=== PATIENT | female | born 1985 | race Caucasian/White ===

== ENCOUNTER 2020-08-07 09:44 | Outpatient (REF) | payer OTHER, SELFPAY | END 2020-08-07 09:45 | disposition home or self-care (01) | LOC: HO.LAB 09:44 | PROVIDERS: Visit Provider Nurse Practitioner Family | DX: L02.91 Cutaneous abscess, unspecified (principal) | CPT/HCPCS: 87071; 87077; 87186; 87205 ==

== ENCOUNTER 2021-02-22 15:57 | Outpatient (REF) | payer OTHER, SELFPAY ==
--- NOTE | ~2021-02-22 | US_ITS ---
EXAMINATION: US THYROID CLINICAL INFORMATION: Nontoxic multinodular goiter. COMPARISON: None. TECHNIQUE: Linear transducer grayscale and color Doppler examination with attention to the region of the thyroid. FINDINGS: SIZE: Measurements of the thyroid lobes and nodules are given in sagittal, anteroposterior and transverse dimensions respectively. Right Thyroid Lobe: 5.6 x 1.9 x 1.85 cm, volume 10.3 mL. Parenchyma: The gland echotexture is heterogeneous. Thyroid vascularity is normal. Left Thyroid Lobe: 8.2 x 3.9 x 3.7 cm, volume 62.9 mL. Parenchyma: The gland echotexture is heterogenous. Thyroid vascularity is normal. Isthmus: 0.7 cm in maximum AP dimension. Estimated total number of nodules greater than or equal to 1 cm: one. Tobacco Weigher nodules are described as follows: 1. Location: Left upper and mid. Size: 6.2 x 3.8 x 2.8 cm, volume 34.5 mL. Nodule characteristics: Composition: Solid (2). Echogenicity: Isoechoic (1). Shape: Taller than wide Margins: Ill-defined (0). Echogenic Foci: None (0). ACR TI-RADS total points: 6 ACR TI-RADS category: 4 NODES: No lymphadenopathy is seen in the tissue surrounding the thyroid gland. US/US thyroid IMPRESSION: Large suspicious nodule upper midpole, almost occupying the entire left lobe. Recommend fine-needle biopsy as per ACR TI-RADS recommendations. ACR TI-RADS RECOMMENDATION REFERENCE: Ultrasound-guided fine-needle aspiration, followup ultrasound, no further follow up. * TR1 (0 point) and TR 2 (2 points): No FNA or follow up * TR3 (3 points): FNA if more than or equal to 2.5 cm in maximum dimension, followup ultrasound in 1, 3 and 5 years if 1.5 to 2.4 cm in maximum dimension. * TR4 (4-6 points): FNA if more than or equal to 1.5 cm in maximum dimension, followup ultrasound in 1, 2, 3 and 5 years if 1 to 1.4 cm in maximum dimension. * TR5 (more than or equal to 7 points): FNA if more than or equal to 1 cm in maximum dimension, followup ultrasound every year for 5 years if 0.5 to 0.9 cm in maximum dimension. * TR3, TR4 or TR5 nodules that are below the size threshold for follow up receive no follow up.
== END 2021-02-22 15:58 | disposition home or self-care (01) ==
LOC: HO.US 15:57
PROVIDERS: PCP Internal Medicine; Visit Provider Internal Medicine
DX: E04.2 Nontoxic multinodular goiter (principal); L68.0 Hirsutism; E55.9 Vitamin D deficiency, unspecified
CPT/HCPCS: 76536; 99202

== ENCOUNTER 2021-02-23 14:38 | Outpatient (REF) | payer OTHER, SELFPAY ==
[2021-02-24 07:56] LABS: HBsAGNum1 0.18 S/CO (0.00-0.99); HIV AB/AG Nonreactive (Nonreactive); HIV Num 1 0.04 S/CO (0.00-0.99); Hepatitis B Surface Antigen Negative (Negative)
[2021-02-24 08:04] LABS: Syphilis Screen Nonreactive (Nonreactive)
[2021-02-24 09:48] LABS: CT PCR NOT DETECTED (Not Detect.); NG PCR NOT DETECTED (Not Detect.)
[2021-02-24 13:46] LABS: BV Int Neg Control Negative (Negative); BV Int Pos Control Positive (Positive)
== END 2021-02-23 14:39 | disposition home or self-care (01) ==
LOC: HO.LAB 14:38
PROVIDERS: Absent Provider Internal Medicine; PCP Internal Medicine; Visit Provider Obstetrics & Gynecology
DX: Z01.419 Encounter for gynecological examination (general) (routine) without abnormal findings (principal); Z11.3 Encounter for screening for infections with a predominantly sexual mode of transmission; Z11.4 Encounter for screening for human immunodeficiency virus [HIV]; Z01.84 Encounter for antibody response examination; Z20.2 Contact with and (suspected) exposure to infections with a predominantly sexual mode of transmission
CPT/HCPCS: 36415; 86780; 87340; 87389; 87480; 87491; 87510; 87591; 87660

== ENCOUNTER → 2021-05-12 13:55 | Outpatient (BNVA) | payer OTHER, SELFPAY | PROVIDERS: PCP Internal Medicine; Visit Provider Internal Medicine ==

== ENCOUNTER 2022-03-21 15:19 | Outpatient (REF) | payer OTHER, SELFPAY ==
[2022-03-22 06:05] LABS: CT PCR NOT DETECTED (Not Detect.); NG PCR NOT DETECTED (Not Detect.)
[2022-03-22 08:30] LABS: BV Int Neg Control Negative (Negative); BV Int Pos Control Positive (Positive)
== END 2022-03-21 15:20 | disposition home or self-care (01) ==
LOC: HO.LAB 15:19
PROVIDERS: Visit Provider Advanced Practice Midwife
DX: Z11.3 Encounter for screening for infections with a predominantly sexual mode of transmission (principal); Z20.2 Contact with and (suspected) exposure to infections with a predominantly sexual mode of transmission
CPT/HCPCS: 87480; 87491; 87510; 87591; 87660

== ENCOUNTER → 2022-04-01 14:12 | Outpatient (BNVA) | payer OTHER, SELFPAY | PROVIDERS: PCP Internal Medicine; Visit Provider Advanced Practice Midwife | DX: Z30.41 Encounter for surveillance of contraceptive pills (principal) | CPT/HCPCS: 99212 ==

== ENCOUNTER 2023-01-27 07:41 | Outpatient (REF) | payer OTHER, SELFPAY | END 2023-01-27 07:42 | disposition home or self-care (01) | LOC: HO.HMGCLDS 07:41 | PROVIDERS: PCP Internal Medicine; Visit Provider Internal Medicine | DX: E04.2 Nontoxic multinodular goiter (principal) | CPT/HCPCS: 36415; 84439; 84443 ==

== ENCOUNTER 2023-03-23 15:12 | Outpatient (REF) | payer OTHER, SELFPAY | END 2023-03-23 15:13 | disposition home or self-care (01) | LOC: HO.LNP 15:12 | PROVIDERS: PCP Internal Medicine; Visit Provider Advanced Practice Midwife | DX: Z13.89 Encounter for screening for other disorder (principal) ==

== ENCOUNTER 2023-03-23 16:06 | Outpatient (REF) | payer OTHER, SELFPAY ==
[2023-03-24 05:04] LABS: Syphilis Screen Nonreactive (Nonreactive)
[2023-03-24 05:16] LABS: HBc Num1 0.07 S/CO (0.00-0.79); HIV AB/AG Nonreactive (Nonreactive); HIV Num 1 0.08 S/CO (0.00-0.99); Hepatitis B Core Antibody Nonreactive (Nonreactive); ~HepC Num1 0.07 S/CO (0.00-0.79); ~Hepatitis C Antibody Nonreactive (Nonreactive)
[2023-03-24 12:05] LABS: CT PCR NOT DETECTED (Not Detect.); NG PCR NOT DETECTED (Not Detect.)
== END 2023-03-23 16:07 | disposition home or self-care (01) ==
LOC: HO.LAB 16:06
PROVIDERS: PCP Internal Medicine; Visit Provider Advanced Practice Midwife
DX: Z11.4 Encounter for screening for human immunodeficiency virus [HIV] (principal); Z20.2 Contact with and (suspected) exposure to infections with a predominantly sexual mode of transmission
CPT/HCPCS: 0353U; 86704; 86780; 86803; 87389

== ENCOUNTER 2023-05-01 13:37 | Outpatient (AMB) | payer OTHER, SELFPAY ==
--- NOTE | 2023-05-01 14:08 | A.OFFPC_ITS ---
Vital Signs 05/01/23 14:11 Height 5 ft 3 in Weight 291 lb BMI 51.5 BP 118/90 H Blood Pressure Location Lt brachial Position Sitting Pulse 87 Pulse Source Pulse Oximeter Pulse Oximetry (%) 100 Oxygen Delivery Method Room Air Intake Visit Reasons: Sinus Infection Intake Note: Pt is here today for a ? sinus infection: sinus pressure, nasal congestion x1.5 days Allergies seasonal allergies Allergy (Unknown, Uncoded 05/01/23 14:25) Unknown Medication List - Last Reconciled 05/01/23 by Beatriz Guzman MD desog-e.estradiol/e.estradiol 0.15-0.02 mgx21 /0.01 mg x 5 1 tab PO DAILY 84 days Tobacco use date assessed: 05/01/23 Dental Screening Dental Screen Date: 05/01/23 Did you have a dental visit in the last 12 months?: No Was dental information given to patient?: No HPI Sinus Infection HPI Details 37-year-old lady here today complaining nasal congestion, frontal headaches, and pain over both cheeks, which has been present for at least 2 days. He has been taking icol-emw-bbwppby cold medication which has not been helping. She has also been complaining of pain and itchiness in left ear canal, no decreased hearing . [facility] Medical History Hirsutism Morbid obesity Multinodular goiter Vitamin D deficiency Surgical History No pertinent past surgical history Family History Father History of hypertension Hx of hyperlipidemia Mother Hypothyroidism Social History Housing: Apartment Alcohol intake: current Patient Tobacco Use Status: Never used Tobacco e-Cigarette/Vaping Use: Never Used service: No Current occupational status: employed Sexual orientation: Straight/Heterosexual Gender identity: Female Cognitive needs: No Hearing needs: No Vision needs: No Female Reproductive History Menstrual Age of Menarche: 12 Questionnaire PHQ-9 Over the last 2 weeks, how often have you been bothered by any of the following problems? 1. Little interest or pleasure in doing things: not at all 2. Feeling down, depressed, or hopeless: not at all 3. Trouble falling or staying asleep, or sleeping too much: several days 4. Feeling tired or having little energy: more than half the days 5. Poor appetite or overeating: not at all 6. Feeling bad about yourself - or that you are a failure or have let yourself or your family down: not at all 7. Trouble concentrating on things, such as reading the newspaper or watching television: not at all 9. Thoughts that you would be better off or of hurting yourself in some way: not at all Depression Screening Interpretation: Negative 88709 - PHQ-9 Billing: Yes Source: Developed by Drs. Jhony Whelan, Marysol Webb, Anthony Gentile and colleagues, with an educational ute from [employer]. Thrive Questionnaire Date Thrive assessed: 05/01/23 What is your living situation today?: I have a steady place to live Within the past 12 months, did the food you bought not last and you didn't have the money to get more?: Never true Within the past 12 months, did you worry whether your food would run out before you got money to buy more?: Never true Do you have trouble paying for medicines?: No Do you have trouble getting transportation to medical appointments?: No Do you have trouble paying your heating and electricity bill?: No Do you have trouble taking care of your child, family member or friend?: No Do you have trouble with day-to-day activities such as bathing, preparing meals, shopping, managing finances, etc.?: No Are you currently unemployed and looking for a job?: No Are you interested in more education?: No AUDIT C Alcohol Use Questionnaire (AUDIT-C) 1. How often do you have a drink containing alcohol?: Never Total Score: 0 AVANI-7 AMB Questionnaire AVANI-7 Date AVANI - 7 assessed: 05/01/23 Feeling nervous, anxious, or on edge: 0 = Not at all Not being able to stop or control worryin = Not at all Worrying too much about different things: 0 = Not at all Trouble relaxin = Not at all Being so restless that it is hard to sit still: 0 = Not at all Becoming easily annoyed or irritable: 0 = Not at all Feeling afraid as if something awful might happen: 0 = Not at all Total AVANI-7 score (0-4 normal; 5-9 mild; 10-14 moderate; 15-21 severe): 0 Source: Developed by Drs. Jhony Whelan, Marysol Webb, Anthony Gentile and colleagues, with an educational ute from [employer]. AVANI-7 Assessment Billing AVANI-7 Assessment Tool: AVANI-7 Assessment 42270 Review of Systems Const All systems reviewed & are unremarkable except as noted in HPI and below Physical exam (Primary Care) Vital Signs: Last Vital Signs Pulse 87 05/01/23 14:11 BP 118/90 H 05/01/23 14:11 Pulse Ox 100 05/01/23 14:11 Oxygen Delivery Method Room Air 05/01/23 14:11 BMI result Body Mass Index 51.5 Tobacco/Smoking Status: Tobacco use Status Tobacco use date assessed 05/01/23 05/01/23 14:14 Patient Tobacco Use Status Never used Tobacco 05/01/23 14:14 e-Cigarette/Vaping Use Never Used 05/01/23 14:14 Depression Screening Interpretation: Negative Thrive Assessment: Date of Thrive Assessment Date Thrive assessed 08/11/21 05/01/23 14:14 Const General: comfortable, no acute distress, alert, awake and Physically active Nutritional Appearance: obese morbidly obese Orientation/consciousness: patient oriented x3 HENMT Head: Yes normocephalic Ears: hearing grossly normal bilaterally, TM normal on the right and Abnormal EAC present cerumen impaction on the left General nose exam: Normal external nose present and Abnormal mucous membranes and turbinates present erythematous and other (Swollen inferior nasal turbinate bilateral) Face and sinus: Yes sinus tenderness (maxillary area) Eyes General: appearance normal, both eyes and all related structures Neck Neck: Yes full ROM, Yes no lymphadenopathy and Yes supple Thyroid: diffusely enlarged, firm and nontender Neuro General: patient oriented x3 Assessment and Plan Assessment & Plan (1) Acute sinusitis: Code(s): J01.90 - Acute sinusitis, unspecified Plan: Prescription sent for amoxicillin 875 mg per tab, to take 1 every 12 hours for 7 days.. May take an gbkb-nmm-anwmkuy Claritin-D 12 hour tablet to take 1 a day in a.m. as needed for and l congestion, do not take for more than 4 days (2) Impacted cerumen of left ear: Code(s): H61.22 - Impacted cerumen, left ear Plan: Cerumen manually removed with lighted curette, patient tolerated procedure well Medications: New amoxicillin 875 mg PO Q12H 14 tabs 0RF J01.90 - Acute sinusitis, unspecified Coding Level of Care Code Est Pt Level 3 (47718) Diagnoses Acute sinusitis J01.90 Impacted cerumen of left ear H61.22 Additional Codes AVANI-7 Assessment Billing - AVANI-7 Assessment Tool: AVANI-7 Assessment 73523 ([id number])
[2023-05-01 14:11] VITALS: BP 118/90; PULSE 87; O2SAT 100; BMI 51.5
== END 2023-05-01 14:50 | disposition home or self-care (01) ==
PROVIDERS: PCP Internal Medicine; Visit Provider Internal Medicine
DX: J01.90 Acute sinusitis, unspecified (principal); H61.22 Impacted cerumen, left ear
CPT/HCPCS: 99213

== ENCOUNTER 2023-05-04 07:46 | Outpatient (REF) | payer OTHER, SELFPAY ==
--- NOTE | 2023-05-04 08:47 | PM.OP ---
Brief Operative Note Date of Service: 05/04/23 Pre-op diagnosis: Multinodular Thyroid Procedure: This is doctor Ghazal Brown. This is an ultrasound-guided fine-needle aspiration report. Indication: Multinodular Thyroid Porcedure: Procedure was explained to the patient. Alternatives, the risk and benefits were discussed. Written consent was obtained. A time-out was also obtained. After sterile preparation, 1 ml of 1% lidocaine solution was applied subcutaneously for anesthetic effect. Then Fine-needle aspiration of a left mid pole 6.2 cm thyroid nodule was performed using direct ultrasound guidance to confirm accurate needle placement. One aspirations were made using a 27 gauge needle, another 3 aspirations were made using 25 guage needles. Samples were submitted for cytology. 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 The patient tolerated the procedure well. Aftercare instructions were provided. Impression: Uncomplicated fine needle aspiration biopsy of a left mid pole 6.2 cm thyroid nodule under ultrasound guidance. The patient additionally had 2 hypoechoic nodules present within the isthmus. She will be sent for a L hemithyroidectomy with isthmusectomy so no FNA was performed only of the dominant nodule. No cervical lymphadenopathy was noted. Surgeon: Ghazal Brown, DO Was an Management Information Systems Director used for this Procedure?: No Estimated blood loss (mL): 0
== END 2023-05-04 07:47 | disposition home or self-care (01) ==
LOC: HO.US 07:46
PROVIDERS: PCP Internal Medicine; Visit Provider Internal Medicine
DX: E04.2 Nontoxic multinodular goiter (principal)
CPT/HCPCS: 10005; 88172; 88173; 88177

== ENCOUNTER → 2023-05-04 07:46 | Outpatient (BNV) | payer OTHER, SELFPAY | PROVIDERS: PCP Internal Medicine; Visit Provider Internal Medicine | DX: E04.2 Nontoxic multinodular goiter (principal) | CPT/HCPCS: 10005; 10006 ==

== ENCOUNTER 2023-05-22 10:32 | Outpatient (AMB) | payer OTHER, SELFPAY ==
--- NOTE | 2023-05-22 10:32 | A.OFFVIS_ITS ---
Intake Intake Visit Reasons: FNA results Clay Miller Required: No Allergies seasonal allergies Allergy (Unknown, Uncoded 05/22/23 14:50) Unknown Medication List - Last Reconciled 05/22/23 by DO nell HernandezogAmparoe.estradiol/e.estradiol 0.15-0.02 mgx21 /0.01 mg x 5 1 tab PO DAILY 84 days HPI HPI Comments History of Present Illness Details 37 YO F with PMHx NTMNG who is seen in F/U for the same. Was initially diagnosed with multinodular thyroid in 2014 with thyroid US revealing multiple large thyroid nodules. She was previously followed at [facility], but she is unsure what the name is. She had FNA biopsies 3-4 years ago, and reports the results were benign. She had a repeat thyroid US 02/22/2021 which revealed a large 6.2 cm LUP thyroid nodule. I completed an FNA biopsy of this large L lobe nodule 05/04/2023 with benign cytology. Currently denies any dysphagia or hoarseness of voice. Denies sensation of swelling in the neck or difficulty breathing while lying flat. Denies any tenderness in the neck. Denies any palpitations, tremors, weight loss, frequent bowel movements. Denies hair loss, dry skin, heat or cold intolerance, weight gain, confusion. Also has hirsutism of the face, chin and neck. Shaves every other day. She reports a long history of irregular menses. Menarche was age 12, but menses were always irregular. Thyroid US: Right Thyroid Lobe: 5.6 x 1.9 x 1.85 cm, volume 10.3 mL. Parenchyma: The gland echotexture is heterogeneous. Thyroid vascularity is normal. Left Thyroid Lobe: 8.2 x 3.9 x 3.7 cm, volume 62.9 mL. Parenchyma: The gland echotexture is heterogenous. Thyroid vascularity is normal. Isthmus: 0.7 cm in maximum AP dimension. 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 Location: Left upper and mid. ?? ? Size: 6.2 x 3.8 x 2.8 cm, volume 34.5 mL. ?? ? Nodule characteristics: ?? ? Composition: Solid (2). ?? ? Echogenicity: Isoechoic (1). ?? ? Shape: Taller than wide ?? ? Margins: Ill-defined (0). ?? ? Echogenic Foci: None (0). ?? ? ACR TI-RADS total points: 6 ?? ? ACR TI-RADS category: 4 NODES: No lymphadenopathy is seen in the tissue surrounding the thyroid gland. Labs: Laboratory Tests 01/27/23 07:47 TSH 1.10 Free T4 1.00 PFSH Medical History Hirsutism Morbid obesity Multinodular goiter Vitamin D deficiency Surgical History No pertinent past surgical history Family History Father History of hypertension Hx of hyperlipidemia Mother Hypothyroidism Social History Housing: Apartment Alcohol intake: current Patient Tobacco Use Status: Never used Tobacco e-Cigarette/Vaping Use: Never Used service: No Current occupational status: employed Sexual orientation: Straight/Heterosexual Gender identity: Female Cognitive needs: No Hearing needs: No Vision needs: No Female Reproductive History Menstrual Age of Menarche: 12 Assessment & Plan Assessment & Plan (1) Multinodular goiter: Code(s): E04.2 - Nontoxic multinodular goiter Plan: We discussed today that given the size of her L lobe nodule and that it does appear to be extending substernally, I do recommend a left hemithyroidectomy as well as isthmusectomy at this time. She is in agreement with this. I will refer her to Dr. Wilkinson at this time. All of her questions were answered today. She is in agreement with this plan of care. I spent 20 minutes in reviewing the record, seeing the patient and documenting in the medical record, including 5 minutes on the phone with the Patient. (2) Hirsutism: Code(s): L68.0 - Hirsutism Plan: Patient with significant hirsutism, as well as a history of amenorrhea. She did not complete her workup for hyperandrogenism. She will hold off for now and discuss this at her F/U visit. Orders: Referrals General Surgery Referral E04.2 - Nontoxic multinodular goiter Telehealth Telehealth Location of provider rendering services: practice address Location of patient: address on file Patient Identification confirmed using: Name, : Yes Telehealth method: voice only Patient verbally consented to treatment: Yes Patient verbally consented to billing insurance company: Yes Patient informed of any privacy concerns related to visit: Yes Coding Level of Care Code Tele Est Pt Level 3 (57264) Diagnoses Multinodular goiter E04.2 Hirsutism L68.0
== END 2023-05-22 15:43 | disposition home or self-care (01) ==
LOC: HO.ENCR 10:32
PROVIDERS: PCP Internal Medicine; Visit Provider Internal Medicine
DX: E04.2 Nontoxic multinodular goiter (principal); L68.0 Hirsutism
CPT/HCPCS: 99213

== ENCOUNTER → 2023-05-22 10:32 | Outpatient (BNVA) | payer OTHER, SELFPAY | PROVIDERS: PCP Internal Medicine; Visit Provider Internal Medicine ==

== ENCOUNTER 2024-03-28 14:15 | Outpatient (REF) | payer OTHER, SELFPAY ==
[2024-04-03 07:23] LABS: HPV mRNA E6/E7 Not Detected (Not Detected)
== END 2024-03-28 14:16 | disposition home or self-care (01) ==
LOC: HO.LNP 14:15
PROVIDERS: PCP Internal Medicine; Visit Provider Advanced Practice Midwife
DX: Z01.419 Encounter for gynecological examination (general) (routine) without abnormal findings (principal); Z11.51 Encounter for screening for human papillomavirus (HPV)
CPT/HCPCS: 87624; 88175

== ENCOUNTER 2024-03-28 14:15 | Outpatient (AMB) | payer OTHER, SELFPAY ==
--- NOTE | 2024-03-28 14:23 | A.OFFVIS_ITS ---
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 Doing well with no concerns. She tries to eat healthy and stays active with exercise. Currently on control and wants to come off this year just to see how her body is reacting. History of heavy irregular cycles in the past. She denies any contraindications to control such as: migraines with aura, history of DVT or pulmonary emboli, high blood pressure, liver disease, thrombolic diso rders, Lupus, +VIVIANE, breast cancer, or smoking. Currently is not sexually active. She denies vaginal itching and irritation. STI screening offered; she declines, she reports being up-to-date no intimacy or exposures since her last visit. Denies family history of breast, ovarian or colon cancer. Last pap smear 2018, negative. [facility] Medical History Hirsutism Morbid obesity Multinodular goiter Vitamin D deficiency Surgical History No pertinent past surgical history Family History Father History of hypertension Hx of hyperlipidemia Mother Hypothyroidism Social History Housing: Apartment Alcohol intake: current Patient Tobacco Use Status: Never used Tobacco e-Cigarette/Vaping Use: Never Used service: No Current occupational status: employed Sexual orientation: Straight/Heterosexual Gender identity: Female Cognitive needs: No Hearing needs: No Vision needs: No Female Reproductive History Menstrual Age of Menarche: 12 Duration of menses: 3-5 days Date of last menstrual period: 03/22/24 control method: pills Date of last pap smear: 08/19/19 History of abnormal pap smear: No History of STI: No Review of Systems Const All systems reviewed & are unremarkable except as noted in HPI and below Reports as per HPI Eyes Reports no additional complaints ENT Reports no additional complaints Card Reports no additional complaints Resp Reports no additional complaints GI Reports as per HPI and Reports no additional complaints Reports as per HPI Musc Reports no additional complaints Skin/Breast Reports as per HPI Neuro Reports no additional complaints Psych Reports no additional complaints Endo Reports no additional complaints Philipp/Lymph Reports no additional complaints Aller/Immun Reports no additional complaints Physical Exam Const General: cooperative, healthy appearing, no acute distress, well developed and alert Orientation/consciousness: patient oriented x3 HEENT Head: Yes normal to inspection Eyes General: appearance normal, both eyes and all related structures Neck Neck: Yes anterior neck swelling (Palpable goiter) Thyroid: Thyroid normal Chest Chest palpation & inspection: normal inspection of the chest and other (no puckering, dimpling, peau de orange, retraction, discharge, masses) Breast/axilla inspection: normal inspection of the breasts Breast/axilla palpation: normal palpation of the breasts Resp Effort & Inspection: normal respiratory effort GI Inspection: Yes normal to inspection and Yes obesity Palpation (GI): Soft to palpation Rectal Exam - Female: deferred General: Yes bladder normal to palpation External Female Exam: normal external appearance and normal appearance of the urethra Speculum Exam - Vagina: normal appearance of the vagina, normal palpation and normal vaginal discharge Speculum Exam - Cervix: normal appearance of the cervix and normal palpation Bimanual exam- vagina & uterus: normal bimanual exam, normal palpation, uterine size normal, bladder normal to palpation, normal palpation and non-tender Bimanual Exam- Adnexa, other: no masses Skin General skin exam: no rashes or lesions noted Rashes: no rashes Neuro General: patient oriented x3 Cognition (Neuro): normal cognition Extrem General: Yes normal to inspection Psych Attitude: cooperative Thought process: Normal thought process present Assessment & Plan Assessment & Plan (1) Encounter for well woman exam with routine gynecological exam: Code(s): Z01.419 - Encounter for gynecological examination (general) (routine) without abnormal findings Category: Medical Plan: Discussed: Current recommendations for pap smears per ASCCP guidelines. Pap obtained. Breast awareness and periodic breast exams. Maintain a healthy lifestyle including a well balanced diet and routine exercise. Use condoms for STI and prevention. control hormone use warnings: go to ER if and loss of vision, blindness, severe headache, chest pain or difficulty breathing, severe abdominal pain, or any pain or swelling in an extremity. Observe cycles if decides to stop control at some point, call if there is any concerns. Keep follow up with endocrine for thyroid concerns. Patient verbalizes understanding and agrees to the plan of care. She was given opportunity to ask questions and all questions were answered to the best of my ability. 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 This note is constructed using voice recognition software. While every effort has been made to ensure accuracy, electrotype finisher errors may have been included. Orders: Orders Pap Smear Today Z01.419 - Encounter for gynecological examination (general) (routine) without abnormal findings Medications: Refilled desog-e.estradiol/e.estradiol 0.15-0.02 mgx21 /0.01 mg x 5 1 tab PO DAILY 84 days 84 tabs 4RF Coding Level of Care Code Est Pt Prev Care 18-39y(18812) Diagnoses Encounter for well woman exam with routine gynecological exam Z01.419
[2024-03-28 14:35] VITALS: BP 134/78; BMI 51.8
== END 2024-03-28 15:10 | disposition home or self-care (01) ==
PROVIDERS: PCP Internal Medicine; Visit Provider Advanced Practice Midwife
DX: Z01.419 Encounter for gynecological examination (general) (routine) without abnormal findings (principal)
CPT/HCPCS: 99395

== ENCOUNTER 2025-02-11 14:46 | Outpatient (AMB) | payer OTHER, SELFPAY ==
[2025-02-11 14:48] VITALS: BP 130/70; PULSE 89; TEMP 37.2; O2SAT 98
--- NOTE | 2025-02-11 14:48 | MHC.OFFWIV ---
Intake Vital Signs 02/11/25 14:48 Height 5 ft 3 in BMI Reason not done Patient refused/unable BP 130/70 Blood Pressure Location Lt brachial Position Sitting Pulse 89 Pulse Source Pulse Oximeter Temp 98.9 F Temp Source Oral Pulse Oximetry (%) 98 Oxygen Delivery Method Room Air Intake Visit Reasons: EP-sinus infection & cough Patient Tobacco Use Status: Never used Tobacco Allergies seasonal allergies Allergy (Unknown, Uncoded 02/11/25 14:48) Unknown Do you need a note to return to daycare/school/sports/work: Yes HPI HPI Comments History of Present Illness Details History of Present Illness - The patient is a 39-year-old female presenting with sinus discomfort and persistent cough that has developed from initial seasonal allergies about a week ago. - Symptoms evolved from sinus pressure to a progressively worsening cough with variable mucus production; initially clear, becoming more solid and yellow. - The patient has had disturbed sleep due to the marked increase in coughing at night, enduring this for the past four nights. - There has been no fever, shortness of breath, wheezing, or prior history of smoking or vaping, and no aggravation of typical associated allergic symptoms. - The patient has been self-medicating with [id number] sinus and allergy medication, reporting no significant improvement. - There was physical sensitivity noted in the ear canal with bloody crust present, although denied any pain. - The discomfort against nasal steroid sprays stems from previous adverse experiences. Physical Exam General: Cooperative, healthy appearing, comfortable, no acute distress and well developed Orientation: Patient oriented x3 Limitations: No limitations Head: Normal to inspection Ears: Hearing grossly normal bilaterally, but some bloody crust and blood noted EAC left, TM's normal bilaterally Nose: Normal External nose present Face and sinus: Normal facial exam, no sinus tenderness noted Eyes: Appearance normal, both eyes and all related structures Neck: Normal visual inspection and Yes full ROM Respiratory: Normal respiratory effort and able to speak in complete sentences. Clear to auscultation bilaterally Cardiovascular: Regular rate and rhythm. Normal S1 and S2 Skin: No rashes or lesions noted Neuro: Patient oriented x3 Extremities: Normal to inspection [facility] Medical History Hirsutism Vitamin D deficiency Morbid obesity Multinodular goiter Surgical History No pertinent past surgical history Family History Father History of hypertension Hx of hyperlipidemia Mother Hypothyroidism Social History Housing: Apartment Alcohol intake: current Patient Tobacco Use Status: Never used Tobacco e-Cigarette/Vaping Use: Never Used service: No Current occupational status: employed Sexual orientation: Straight/Heterosexual Gender identity: Female Cognitive needs: No Hearing needs: No Vision needs: No Female Reproductive History Menstrual Age of Menarche: 12 Review of Systems Const All systems reviewed & are unremarkable except as noted in HPI and below Physical Exam Vital Signs: Last Vital Signs Temp 98.9 F 02/11/25 14:48 Pulse 89 02/11/25 14:48 BP 130/70 02/11/25 14:48 Pulse Ox 98 02/11/25 14:48 Oxygen Delivery Method Room Air 02/11/25 14:48 Assessment & Plan Assessment & Plan (1) Upper respiratory tract infection: Code(s): J06.9 - Acute upper respiratory infection, unspecified Qualifiers: URI type: unspecified URI Qualified Code(s): J06.9 - Acute upper respiratory infection, unspecified Plan: The patient will receive Tessalon Perles for cough suppression to aid in better nighttime rest and a contingency Z-Dustin should symptoms persist without improvement, suggesting bacterial involvement. The Z-Dustin prescription should be a safety net, only to be used if symptoms do not improve in the next 2-3 days. Recommended adding sudafed for the next few days as well. During the visit, instructions on typical symptomatic management and signs of bacterial infection vs. prolonged viral infection were provided. Further interventions focus on patient comfort and appropriate intervention only if infection characteristics demonstrably shift during the follow-up period. The patient declines Flonase due to prior discomfort, so non-pharmacological strategies and monitoring are advised. Reminded pt that her OCP control will be less effective if she takes the ZPak so she should use a backup method of control for the next 2 months. Patient was informed and verbally consented to the use of an ambient scribe for clinic note documentation during this visit. Medications: New azithromycin For 250 mg dose pack: take 500 mg today (day 1), then 250 mg for 4 days (days 2-5) PO 6 tabs 0RF benzonatate 200 mg PO BEDTIME PRN 10 caps 0RF cough Coding Level of Care Code Est Pt Level 3 (23826) Diagnoses Upper respiratory tract infection, unspecified type J06.9 URI type: unspecified URI
== END 2025-02-11 16:11 | disposition home or self-care (01) ==
PROVIDERS: PCP Internal Medicine; Visit Provider Physician Assistant
DX: J06.9 Acute upper respiratory infection, unspecified (principal)

== ENCOUNTER → 2025-02-11 14:46 | Outpatient (BNVA) | payer OTHER, SELFPAY | PROVIDERS: PCP Internal Medicine; Visit Provider Physician Assistant | DX: J06.9 Acute upper respiratory infection, unspecified (principal) | CPT/HCPCS: 99212 ==

== ENCOUNTER 2025-04-01 14:09 | Outpatient (REF) | payer OTHER, SELFPAY ==
[2025-04-02 13:41] LABS: CT PCR NOT DETECTED (Not Detect.); NG PCR NOT DETECTED (Not Detect.)
[2025-04-02 14:11] LABS: Bacterial Vaginosis PCR NEGATIVE (Negative); Candida Group PCR NOT DETECTED (Not Detect); Candida glab krusei PCR NOT DETECTED (Not Detect); Trichomonas vaginalis PCR NOT DETECTED (Not Detect)
== END 2025-04-01 14:10 | disposition home or self-care (01) ==
LOC: HO.LNP 14:09
PROVIDERS: PCP Internal Medicine; Visit Provider Advanced Practice Midwife
DX: Z01.419 Encounter for gynecological examination (general) (routine) without abnormal findings (principal); Z20.2 Contact with and (suspected) exposure to infections with a predominantly sexual mode of transmission
CPT/HCPCS: 81515; 87491; 87591; 99395

== ENCOUNTER 2025-04-01 14:09 | Outpatient (AMB) | payer OTHER, SELFPAY ==
--- NOTE | 2025-04-01 14:19 | A.OFFVIS_ITS ---
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 Doing well on OCPs. She denies any contraindications to control such as: migraines with aura, history of DVT or pulmonary emboli, high blood pressure, liver disease, thrombolic disorders, Lupus, +VIVIANE, breast cancer, or smoking. Currently is not sexually active. She denies vaginal itching or irritation. STI screening offered; she accepts, declines bled work. She tries to eat healthy and stays active with exercise. Denies family history of breast, ovarian or colon cancer. Last pap smear 2023, negative. [facility] Medical History Hirsutism Vitamin D deficiency Morbid obesity Multinodular goiter Surgical History No pertinent past surgical history Family History Father History of hypertension Hx of hyperlipidemia Mother Hypothyroidism Social History Housing: Apartment Alcohol intake: current Patient Tobacco Use Status: Never used Tobacco e-Cigarette/Vaping Use: Never Used service: No Current occupational status: employed Sexual orientation: Straight/Heterosexual Gender identity: Female Cognitive needs: No Hearing needs: No Vision needs: No Female Reproductive History Menstrual Age of Menarche: 12 Duration of menses: 6-7 days Date of last menstrual period: 03/22/25 control method: pills Total pregnancies: 0 Date of last pap smear: 03/28/24 (neg pap and hpv) Review of Systems Const All systems reviewed & are unremarkable except as noted in HPI and below Reports as per HPI Eyes Reports no additional complaints ENT Reports no additional complaints Card Reports no additional complaints Resp Reports no additional complaints GI Reports as per HPI and Reports no additional complaints Reports as per HPI Musc Reports no additional complaints Skin/Breast Reports as per HPI Neuro Reports no additional complaints Psych Reports no additional complaints Endo Reports no additional complaints Philipp/Lymph Reports no additional complaints Aller/Immun Reports no additional complaints Physical Exam Vital Signs: Last Vital Signs BP 110/76 04/01/25 14:20 BMI result Body Mass Index 53.7 Const General: cooperative, healthy appearing, no acute distress, well developed and alert Orientation/consciousness: patient oriented x3 HEENT Head: Yes normal to inspection Eyes General: appearance normal, both eyes and all related structures Neck Neck: Yes normal visual inspection (Enlarged thyroid goiter) Thyroid: diffusely enlarged Chest Chest palpation & inspection: normal inspection of the chest and other (no puckering, dimpling, peau de orange, retraction, discharge, masses) Breast/axilla inspection: normal inspection of the breasts Breast/axilla palpation: normal palpation of the breasts Resp Effort & Inspection: normal respiratory effort GI Inspection: Yes normal to inspection and Yes obesity Palpation (GI): Soft to palpation Rectal Exam - Female: deferred General: Yes bladder normal to palpation External Female Exam: normal external appearance and normal appearance of the urethra Speculum Exam - Vagina: normal appearance of the vagina, normal palpation, normal vaginal discharge and vaginal bleeding Speculum Exam - Cervix: normal appearance of the cervix and normal palpation Bimanual exam- vagina & uterus: normal bimanual exam, normal palpation, uterine size normal, bladder normal to palpation, normal palpation and non-tender Bimanual Exam- Adnexa, other: no masses OB/external & speculum: vaginal bleeding Skin General skin exam: no rashes or lesions noted Rashes: no rashes Neuro General: patient oriented x3 Cognition (Neuro): normal cognition Extrem General: Yes normal to inspection Psych Attitude: cooperative Thought process: Normal thought process present Assessment & Plan Assessment & Plan (1) Encounter for well woman exam with routine gynecological exam: Code(s): Z01.419 - Encounter for gynecological examination (general) (routine) without abnormal findings Category: Medical Plan: Discussed: Current recommendations for pap smears per ASCCP guidelines. Breast awareness and periodic breast exams. Maintain a healthy lifestyle including a well balanced diet and routine exercise. Use condoms for STI and prevention. Advised to follow up with her PCP regarding her swelling foot, and for general routine care. control hormone use warnings: go to ER if and loss of vision, blindness, severe headache, chest pain or difficulty breathing, severe abdominal pain, or any pain or swelling in an extremity. Patient verbalizes understanding and agrees to the plan of care. She was given opportunity to ask questions and all questions were answered to the best of my ability. RTO in one year for annual printing screen assembler examination. This note is constructed using voice recognition software. While every effort has been made to ensure accuracy, x ray developer errors may have been included. (2) Possible exposure to STD: Code(s): Z20.2 - Contact with and (suspected) exposure to infections with a predominantly sexual mode of transmission Plan GC chlamydia and BV panel obtained. Await results for final plan of care. Insert all questions. Orders: Orders CT NG by PCR Vag/Cerv Today Z20.2 - Contact with and (suspected) exposure to infections with a predominantly sexual mode of transmission Bacterial Vaginosis Panel Today Z20.2 - Contact with and (suspected) exposure to infections with a predominantly sexual mode of transmission Medications: Refilled desog-e.estradiol/e.estradiol 0.15-0.02 mgx21 /0.01 mg x 5 1 tab PO DAILY 84 tabs 4RF 84 days Coding Level of Care Code Est Pt Prev Care 18-39y(25199) Diagnoses Encounter for well woman exam with routine gynecological exam Z01.419 Possible exposure to STD Z20.2
[2025-04-01 14:20] VITALS: BP 110/76; BMI 53.7
== END 2025-04-01 15:01 | disposition home or self-care (01) ==
LOC: HO.HWS 14:09
PROVIDERS: PCP Internal Medicine; Visit Provider Advanced Practice Midwife
DX: Z01.419 Encounter for gynecological examination (general) (routine) without abnormal findings (principal); Z20.2 Contact with and (suspected) exposure to infections with a predominantly sexual mode of transmission
CPT/HCPCS: 99395; 99459

== ENCOUNTER 2025-04-01 15:01 | Outpatient (REF) | payer OTHER, SELFPAY | END 2025-04-01 15:02 | disposition home or self-care (01) | LOC: HO.LAB 15:01 | PROVIDERS: Visit Provider Advanced Practice Midwife | DX: Z13.89 Encounter for screening for other disorder (principal) ==

== ENCOUNTER 2025-08-21 07:55 | Outpatient (AMB) | payer OTHER, SELFPAY ==
--- NOTE | 2025-08-21 08:01 | AM.OFFWIN_ITS ---
Intake Vital Signs 08/21/25 08:04 Height 5 ft 3 in Weight 301 lb BMI 53.3 BP 142/80 H Blood Pressure Location Rt brachial Position Sitting Pulse 84 Pulse Source Pulse Oximeter Temp 97.5 F Temp Source Oral Pulse Oximetry (%) 100 Oxygen Delivery Method Room Air Intake Visit Reasons: EP-rt side lower back pain Intake Note: Patient presents c/o right side low back pain x4 days that radiates into right side. Patient Tobacco Use Status: Never used Tobacco Allergies seasonal allergies Allergy (Unknown, Uncoded 08/21/25 08:14) Unknown HPI HPI Comments History of Present Illness Details History - The patient is a 39-year-old individua l presenting with low back pain. 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 - The pain initially improved but worsen ed after work, spreading around to the right side without associated symptoms like vomiting, diarrhea, or fever. - The patient has been using ibuprofen a nd Tylenol for pain relief, but reports needing to take large amounts for any effect. - The patient has no numbness, tingling, or pain radiating down the legs, and no urinary symptoms. - She had no fall or trauma. - She has no hematuria, dysuria, CP, SOB , saddle anesthesia, or incontinence. Physical Exam General: cooperative, healthy appearing and comfortable, patient oriented x3 Head: Normal to inspection, normocephalic/atraumatic Effort & Inspection: Normal respiratory effort and able to speak in complete sentences. Cardiac: RRR, no M/R/G noted. Normal S1 and S2. Respiratory: Clear to auscultation bilaterally. No w/r/r noted. Back/spine: No CVA tenderness bilaterally. Cervical, thoracic and lumbar spine normal to inspection. Cervical ROM normal, no midline spinous tenderness noted. Thoracic ROM normal, lumbar ROM normal. No midline vertebral spinous tenderness noted. No step offs noted. No TTP of the thoracic paraspinous or paravertebral muscles. TTP of the lumbar paravertebral muscles and right flank. DTR are 2+ on the lower extremities noted. Ambulates with a steady gait. Strength is 5/5 on the LE bilaterally. Extremities: Straight leg raise test negative on right; Straight leg raise test negative on left; motor strength normal 5/5 bilaterally. Neuro: Sensation intact. Patient was informed and verbally consented to the use of an ambient scribe for clinic note documentation during this visit. [facility] Medical History Hirsutism Vitamin D deficiency Morbid obesity Multinodular goiter Surgical History No pertinent past surgical history Family History Father History of hypertension Hx of hyperlipidemia Mother Hypothyroidism Social History Housing: Apartment Alcohol intake: current Patient Tobacco Use Status: Never used Tobacco e-Cigarette/Vaping Use: Never Used service: No Current occupational status: employed Sexual orientation: Straight/Heterosexual Gender identity: Female Cognitive needs: No Hearing needs: No Vision needs: No Female Reproductive History Menstrual Age of Menarche: 12 Review of Systems Const All systems reviewed & are unremarkable except as noted in HPI and below Physical Exam Vital Signs: Last Vital Signs Temp 97.5 F 08/21/25 08:04 Pulse 84 08/21/25 08:04 BP 142/80 H 08/21/25 08:04 Pulse Ox 100 08/21/25 08:04 Oxygen Delivery Method Room Air 08/21/25 08:04 BMI result Body Mass Index 53.3 Results AMB Urinalysis, Automated UA Leukoctes 0 Patt/uL Last Edit by Gely Cho CMA on 08/21/25 08:53 UA Nitrite Negative Last Edit by Gely Cho CMA on 08/21/25 08:53 UA Urobilinogen 0.2 mg/dL Last Edit by Gely Cho CMA on 08/21/25 08: 53 UA Protein 0 mg/dL Last Edit by Gely Cho CMA on 08/21/25 08:53 UA pH 7.0 Last Edit by Gely Cho CMA on 08/21/25 08:53 UA Blood 0 Kailash/uL Last Edit by Gely Cho CMA on 08/21/25 08:53 UA Specific [place] 1.010 Last Edit by Gely Cho CMA on 08/21/25 08 :53 UA Ketone Negative Last Edit by Gely Cho CMA on 08/21/25 08:53 UA Bilirubin 0 mg/dL Last Edit by Gely Cho CMA on 08/21/25 08:53 UA Glucose 0 mg/dL Last Edit by Gely Cho CMA on 08/21/25 08:53 Results Reviewed Results Reviewed: Laboratory Last Values Urine pH (Auto) 7.0 08/21/25 08:52 Specific [place] (Auto) 1.010 08/21/25 08:52 Urine Protein (Auto) 0 mg/dL 08/21/25 08:52 Glucose (UA)(Auto) 0 mg/dL 08/21/25 08:52 Urine Ketones (Auto) Negative 08/21/25 08:52 Urine Blood (Auto) 0 Kailash/uL 08/21/25 08:52 Urine Nitrite (Auto) Negative 08/21/25 08:52 Urine Bilirubin (Auto) 0 mg/dL 08/21/25 08:52 Urine Urobilinogen (Auto) 0.2 mg/dL 08/21/25 08:52 Leukocyte Esterase (Auto) 0 Patt/uL 08/21/25 08:52 Assessment & Plan Assessment & Plan (1) Back pain: Code(s): M54.9 - Dorsalgia, unspecified Qualifiers: Back pain laterality: bilateral Back pain location: low back pain Chronicity: acute Sciatica presence: without sciatica Qualified Code(s): M54.50 - Low back pain, unspecified Plan Most likely strain vs sciactica vs arthritis Plan - Prescribed meloxicam once daily for pain management, with the option to use Tylenol or Motrin for breakthrough pain, cautioning against the use of multiple NSAIDs to avoid gastrointestinal upset. - Prescribed Cyclobenzaprine 10 mg, up to three times a day, with instructions to adjust dosage based on tolerance and effectiveness. - Prescribed a five-day course of low-dose prednisone to reduce inflammation. - Discussed the possibility of physical therapy, with the patient having access to advice from a friend who is a physical therapist. - will write her a work note - activities as tolerated - follow up with PCP Orders: Orders AMB Urinalysis Automated Today Z13.9 - Encounter for screening, unspecified Medications: New 2 cyclobenzaprine 10 mg (2 x 5 mg) PO Q8H PRN 20 tabs 0RF Muscle Spasm meloxicam 15 mg PO DAILY 15 tabs 0RF prednisone 40 mg (2 x 20 mg) PO DAILY 10 tabs 0RF 5 days Coding Level of Care Code Est Pt Level 3 (96872) Diagnoses Acute bilateral low back pain without sciatica M54.50 Back pain laterality: bilateral Back pain location: low back pain Chronicity: acute Sciatica presence: without sciatica
[2025-08-21 08:04] VITALS: BP 142/80; PULSE 84; TEMP 36.4; O2SAT 100; BMI 53.3
== END 2025-08-21 08:37 | disposition home or self-care (01) ==
PROVIDERS: PCP Internal Medicine; Visit Provider Physician Assistant Medical
DX: Z13.9 Encounter for screening, unspecified (principal); M54.50 Low back pain, unspecified

== ENCOUNTER → 2025-08-21 07:55 | Outpatient (BNVA) | payer OTHER, SELFPAY | PROVIDERS: PCP Internal Medicine; Visit Provider Physician Assistant Medical | DX: M54.50 Low back pain, unspecified (principal) | CPT/HCPCS: 81003; 99212 ==